=== PATIENT | female | born 1940 | race Caucasian/White ===

== ENCOUNTER 2024-01-03 08:36 | Outpatient (CLI) | payer MEDICARE, BC, OTHER | END 2024-01-03 08:37 | disposition home or self-care (01) | LOC: CSHWCC 08:36 | PROVIDERS: ATTEND Nurse Practitioner Family | DX: I87.311 Chronic venous hypertension (idiopathic) with ulcer of right lower extremity (principal); L97.311 Non-pressure chronic ulcer of right ankle limited to breakdown of skin | CPT/HCPCS: 11042; G0463; 99213 ==

== ENCOUNTER 2024-01-07 12:50 | Outpatient (CLI) | payer MEDICARE, BC, OTHER | END 2024-01-07 12:51 | disposition home or self-care (01) | LOC: CSHWCC 12:50 | PROVIDERS: ATTEND Nurse Practitioner Family | DX: I87.311 Chronic venous hypertension (idiopathic) with ulcer of right lower extremity (principal); L97.311 Non-pressure chronic ulcer of right ankle limited to breakdown of skin | CPT/HCPCS: 99212; G0463 ==

== ENCOUNTER 2024-01-10 10:09 | Outpatient (CLI) | payer MEDICARE, BC, OTHER | END 2024-01-10 10:10 | disposition home or self-care (01) | LOC: CSHWCC 10:09 | PROVIDERS: ATTEND Nurse Practitioner Family | DX: I87.311 Chronic venous hypertension (idiopathic) with ulcer of right lower extremity (principal); L97.311 Non-pressure chronic ulcer of right ankle limited to breakdown of skin | CPT/HCPCS: 11042 ==

== ENCOUNTER 2024-01-14 16:40 | Outpatient (CLI) | payer BC, MEDICARE | END 2024-01-14 16:41 | disposition home or self-care (01) | LOC: CSHWCC 16:40 | PROVIDERS: ATTEND Nurse Practitioner Family | DX: I87.311 Chronic venous hypertension (idiopathic) with ulcer of right lower extremity (principal); L97.311 Non-pressure chronic ulcer of right ankle limited to breakdown of skin | CPT/HCPCS: 29581 ==

== ENCOUNTER 2024-01-17 12:37 | Outpatient (CLI) | payer MEDICARE, BC | END 2024-01-17 12:38 | disposition home or self-care (01) | LOC: CSHWCC 12:37 | PROVIDERS: ATTEND Nurse Practitioner Family | DX: I87.311 Chronic venous hypertension (idiopathic) with ulcer of right lower extremity (principal); L97.311 Non-pressure chronic ulcer of right ankle limited to breakdown of skin | CPT/HCPCS: 11042 ==

== ENCOUNTER 2024-01-21 08:26 | Outpatient (CLI) | payer BC, MEDICARE | END 2024-01-21 08:27 | disposition home or self-care (01) | LOC: CSHWCC 08:26 | PROVIDERS: ATTEND Nurse Practitioner Family | DX: I87.311 Chronic venous hypertension (idiopathic) with ulcer of right lower extremity (principal); L97.311 Non-pressure chronic ulcer of right ankle limited to breakdown of skin | CPT/HCPCS: 29581 ==

== ENCOUNTER 2024-01-24 10:45 | Outpatient (CLI) | payer MEDICARE | END 2024-01-24 10:46 | disposition home or self-care (01) | LOC: CSHWCC 10:45 | PROVIDERS: ATTEND Nurse Practitioner Family | DX: I87.311 Chronic venous hypertension (idiopathic) with ulcer of right lower extremity (principal); L97.311 Non-pressure chronic ulcer of right ankle limited to breakdown of skin | CPT/HCPCS: 11042 ==